=== PATIENT | female | born 1960 | race Caucasian/White ===

== ENCOUNTER 2024-05-21 06:20 | Inpatient (IN) | payer OTHER ==
[~2024-05-21] VITALS: Ht 170.2 cm; Wt 54.5 kg
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
--- NOTE | 2024-05-21 06:50 | ECG ---
[facility] Test Date: 2024-05-21 Test Time: 06:26:41 Pat Name: ARMINDA SANDHU Department: ED Room: Gender: F Soot Blower: WINNIE : 1960 Requested By: ARI WEBSTER Order Number: [id number] Reading MD: Measurements Intervals [place] Rate: 77 P: 81 MD: 147 QRS: 83 QRSD: 89 T: 54 QT: 411 QTc: 466 Interpretive Statements Sinus rhythm Please click the below link to view image of tracing.
[2024-05-21 07:06] LABS: Basophils # (auto) 0 10 ^3/uL (0-0.2); Basophils % (auto) 0.5 % (0.0-2.0); Eosinophils # (auto) 0.1 10 ^3/uL (0-0.8); Eosinophils % (auto) 1.5 % (0.0-7.0); Hematocrit 42.7 % (36.0-46.0); Hemoglobin 14.2 g/dL (12.2-16.2); Lymphocytes # (auto) 1.5 10 ^3/uL (0.4-5.4); Lymphocytes % (auto) 28.9 % (10.0-50.0); Mean Corpuscular Hemoglobin 32.6 pg (28.0-32.0); Mean Corpuscular Hgb Conc. 33.3 g/dL (32.0-36.0); Monocytes # (auto) 0.4 10 ^3/uL (0-1.3); Monocytes % (auto) 8.4 % (0.0-12.0); Neutrophils # (auto) 3.1 10 ^3/uL (1.6-8.6); Neutrophils % (auto) 60.7 % (37.0-80.0); Nucleated Red Blood Cells % 0.1 %; Platelet Count (auto) 274 10^3/uL (140-450); Red Blood Cells 4.36 10^6/uL (4.0-5.20); Red Cell Distribution Width 13.1 % (11.8-14.3); White Blood Cell 5.1 10^3/uL (4.4-10.8)
[2024-05-21 07:21] LABS: Chloride 107 mmol/L (98-107); Potassium 4.2 mmol/L (3.5-5.1); Sodium 138 mmol/L (136-145)
[2024-05-21 07:22] LABS: Anion Gap 4 (5-15); Calcium 9.7 mg/dL (8.7-10.4); Carbon Dioxide 27 mmol/L (20-31)
[2024-05-21 07:27] LABS: BUN/Creatinine Ratio 13.8 (10.0-20.0); Blood Urea Nitrogen 8 mg/dL (9-23); Glucose 117 mg/dL (74-106)
[2024-05-21 08:00] VITALS: PULSE 95; RESP 20; O2SAT 95
[2024-05-21 08:04] LABS: Urine Bacteria None Seen /hpf (None Seen)
[2024-05-21 08:08] LABS: Urine Blood Negative /uL (Negative); Urine Clarity Clear (Clear); Urine Color Light-Yellow (Yellow); Urine Mucus FEW (None Seen); Urine Protein, UAD Negative (Negative); Urine Specific Gravity 1.017 (1.001-1.035); Urine Urobilinogen Normal (Negative); Urine WBC 3 /hpf (0 - 5)
--- NOTE | 2024-05-21 08:17 | DVH ---
EXAM: CT HEAD WITHOUT CONTRAST HISTORY: tia COMPARISON: None TECHNIQUE: [Technique] Axial images of the head were obtained and reformatted in coronal and sagittal planes. All CT scans at this medical facility are performed using dose modulation techniques as appropriate t o a performed exam including the following: Automated exposure control was utilized; adjustment of th e MA and/or KV according to patient size; and use of iterative reconstruction technique. FINDINGS: [Findings] There is no evidence of acute intracranial hemorrhage, mass, mass effect midline shift. There is no h ydrocephalus or extra-axial fluid collection. Clarke-white matter differentiation is maintained.. There is mild mucosal thickening in the right maxillary and ethmoid sinuses. The mastoid air cells a re clear. The calvarium is intact. IMPRESSION: 1. No acute intracranial process. HS:Y
[2024-05-21] MEDS ORDERED: SODIUM CHLORIDE 0.9% 1,000 ML IV SCH (10:00)
[2024-05-21] MEDS ORDERED: ONDANSETRON HCL 4 MG/2 ML VIAL IV PRN (10:00)
[2024-05-21] MEDS ORDERED: ACETAMINOPHEN 325 MG TAB PO PRN (10:00)
[2024-05-21] MEDS ORDERED: LORazepam 0.5 MG TAB PO PRN (10:00)
[2024-05-21] MEDS ORDERED: DEXTROSE (50%) 50ML SYRG IV PRN (10:00)
[2024-05-21] MEDS ORDERED: MAALOX PLUS or MAALOX 30 ML PO PRN (10:00)
[2024-05-21] MEDS ORDERED: DOCUSATE SOD 100 MG CAP PO PRN (10:00)
--- NOTE | 2024-05-21 11:14 | DVHHP2 ---
History of Present Illness Reason for Visit: General Weakness History of Present Illness 63 yo female with weakness numbness and tingling in the extremities with fear of initial stroke brought in to the ed by her son states she was also have alot of urinary frequency and has been feeling extremely dry patient for admission and continued evaluation and management based on ed recommendations Cardiovascular: HTN Renal/: UTI Review of Systems Constitutional: Yes: Weakness; No: Fever, Chills, Sweats, Malaise, Other Eyes: No: Pain, Vision change, Conjunctivae inflammation, Eyelid inflammation, Other, Redness ENT: No: Ear pain, Ear discharge, Nose pain, Nose discharge, Nose congestion, Mouth pain, Mouth swelling, Throat pain, Throat swelling, Other Respiratory: Dry; No: Cough, Shortness of breath, SOB with excertion, Wheezing, Hemoptysis, Pleuritic Pain, Sputum, Wheezing, Other Cardiovascular: No: Chest Pain, Palpitations, Orthopnea, Paroxysmal Noc. Dyspnea, Edema, Lt Headedness, Other Gastrointestinal: No: Nausea, Vomiting, Abdominal Pain, Diarrhea, Constipation, Melena, Hematochezia, Other Genitourinary: No Dysuria; Frequency; No Incontinence, No Hematuria, No Retention, No Other Musculoskeletal: No: other, neck pain, shoulder pain, arm pain, back pain, hand pain, leg pain, foot pain Skin: No: Rash, Lesions, Jaundice, Bruising, Other Neurological: Weakness, Numbness; No: Incoordination, Change in speech, Confusion, Seizures, Other Allergies: Coded Allergies: Codeine (Verified Allergy, Unknown, 05/21/24) Meperidine (Verified Allergy, Unknown, 05/21/24) Medications Current Medications Medications Dose Ordered Sig/Yaakov Route Start Time Stop Time Status Last Admin Dose Admin Diagnostic Test (Pha) 1 strip ACHS 05/21/24 11:30 UNV Insulin Human Regular ACHS SC 05/21/24 11:30 UNV Dextrose 50 ml UD PRN IV 05/21/24 10:00 UNV Sodium Chloride 1,000 ml @ 60 mls/hr [id number] IV 05/21/24 10:00 UNV Lorazepam 0.5 mg Q6HP PRN PO 05/21/24 10:00 UNV Al Hydrox/Mg Hydrox/Simethicone 30 ml Q6HP PRN PO 05/21/24 10:00 UNV Docusate Sodium 100 mg BIDPRN PRN PO 05/21/24 10:00 UNV Acetaminophen 650 mg Q6HP PRN PO 05/21/24 10:00 UNV Ondansetron HCl 4 mg Q4HP PRN IV 05/21/24 10:00 UNV Exam Vital Signs Vital Signs Date Time Temp Pulse Resp B/P (MAP) Pulse Ox O2 Delivery O2 Flow Rate FiO2 05/21/24 10:33 98.2 67 11 107/40 (62) 95 98.2 05/21/24 07:55 Room Air General Appearance: Alert, Oriented X3 HEENT: Atraumatic, PERRLA Respiratory: Clear to auscultation, Normal air movement Cardiovascular: Regular rate, Normal S1, Normal S2 Abdominal: Normal bowel sounds, Soft Extremities: No clubbing, No cyanosis Skin: No rashes, No breakdown Neuro: Normal gait, Normal speech Psych/Mental Status: Mood NL Labs/Xrays Labs Test 05/21/24 07:54 05/21/24 06:47 Range/Units Urine Color Light-yellow Yellow Urine Clarity Clear Clear Urine pH 6.0 5.0-9.0 Urine Specific [place] 1.017 1.001-1.035 Urine Protein Negative Negative Urine Ketones Trace Negative Urine Blood Negative Negative /uL Urine Nitrite Negative Negative Urine Bilirubin Negative Negative Urine Urobilinogen Normal Negative mg/dL Urine Leukocyte Esterase 2+ Negative /uL Urine RBC 2 0 - 4 /hpf Urine WBC 3 0 - 5 /hpf Urine Squamous Epithelial Cells Few <5 /hpf Urine Bacteria None seen None Seen /hpf Urine Mucus Few None Seen Urine Glucose Normal Normal mg/dL White Blood Count 5.1 4.4-10.8 10^3/uL Red Blood Count 4.36 4.0-5.20 10^6/uL Hemoglobin 14.2 12.2-16.2 g/dL Hematocrit 42.7 36.0-46.0 % Mean Corpuscular Volume 98.0 80.0-100.0 fL Mean Corpuscular Hemoglobin 32.6 H 28.0-32.0 pg Mean Corpuscular Hemoglobin Concent 33.3 32.0-36.0 g/dL Red Cell Distribution Width 13.1 11.8-14.3 % Platelet Count 274 140-450 10^3/uL Mean Platelet Volume 7.7 6.9-10.8 fL Neutrophils (%) (Auto) 60.7 37.0-80.0 % Lymphocytes (%) (Auto) 28.9 10.0-50.0 % Monocytes (%) (Auto) 8.4 0.0-12.0 % Eosinophils (%) (Auto) 1.5 0.0-7.0 % Basophils (%) (Auto) 0.5 0.0-2.0 % Neutrophils # (Auto) 3.1 1.6-8.6 10 ^3/uL Lymphocytes # (Auto) 1.5 0.4-5.4 10 ^3/uL Monocytes # (Auto) 0.4 0-1.3 10 ^3/uL Eosinophils # (Auto) 0.1 0-0.8 10 ^3/uL Basophils # (Auto) 0 0-0.2 10 ^3/uL Nucleated Red Blood Cells 0.1 % Sodium Level 138 136-145 mmol/L Potassium Level 4.2 3.5-5.1 mmol/L Chloride Level 107 98-107 mmol/L Carbon Dioxide Level 27 20-31 mmol/L Anion Gap 4 L 5-15 Blood Urea Nitrogen 8 L 9-23 mg/dL Creatinine 0.58 0.550-1.02 mg/dL Glomerular Filtration Rate Calc 100 >90 mL/min BUN/Creatinine Ratio 13.8 10.0-20.0 Serum Glucose 117 H 74-106 mg/dL Calcium Level 9.7 8.7-10.4 mg/dL Assessment/Plan Assessment/Plan Admit to Med/Surge General Weakness Rule out TIA CT head negative electroyltes imbalnce noted IV hydration UTI Positive leukocytes Positive Bacteria Positive for frequency and stated confusion IV hydration IV abx Plan discussed with: Patient, Son My Orders Orders - ZAKIA NUNEZ MD Procedure Category Date Status Time Ceftriaxone 1gm/50ml PHA 05/21/24 Logged D5w (Rocephin) 10:00 Glucose Blood PHA 05/21/24 Logged (Accu-Chek Comfort 11:30 Insulin R (Human) PHA 05/21/24 Logged (Insulin R) 11:30 Dextrose 50% Syringe PHA 05/21/24 Logged 10:00 Admit ADMIT 05/21/24 Transmitted 09:59 Code Status CODE 05/21/24 Transmitted 09:59 Vital Signs [facility] 05/21/24 In Process 09:59 Review Orders With [facility] 05/21/24 In Process Adm. 09:59 Regular Diet DIET 05/21/24 Transmitted Lunch Sodium Chloride 0.9% PHA 05/21/24 Logged 10:00 Lorazepam Tablet PHA 05/21/24 Logged (Ativan Tablet) 10:00 Alum & Mag PHA 05/21/24 Logged Hydrox-Simethicone 10:00 Docusate Sodium PHA 05/21/24 Logged Capsule (Colace 10:00 Acetaminophen Tablet PHA 05/21/24 Logged (Tylenol Tablet) 10:00 Notify Of Changes [facility] 05/21/24 In Process From Base 09:59 Advance Directive [facility] 05/21/24 In Process 09:59 Basic Metabolic Panel LAB 05/22/24 Verified 04:00 Complete Blood Count LAB 05/22/24 Verified 04:00 Patient Condition ORDERS 05/21/24 Transmitted 09:59 Allergies [facility] 05/21/24 In Process 09:59 Ondansetron Hcl [facility] 05/21/24 Logged (Zofran) 10:00 Stat Ekg For Chest [facility] 05/21/24 In Process Pain 09:59 Notify Of Changes [facility] 05/21/24 In Process From Base 09:59 Stenocaptioner For [facility] 05/21/24 In Process 24 Hours 09:59 Emergency Dysrhythmia [facility] 05/21/24 In Process Protocol 09:59 Rhythm Strips Once [facility] 05/21/24 In Process Every Shift 09:59 Oxygen By Nasal RT 05/21/24 Transmitted Cannula 09:59 Sodium Chloride 0.9% [facility] 05/21/24 Verified 11:00 Problem List: (1) UTI (urinary tract infection) (2) TIA (transient ischemic attack) Date of Service: May 21, 2024 Billing Provider: ZAKIA NUNEZ MD Common Visit Codes: [id number] INP/OBS CARE (HIGH) ZAKIA NUNEZ MD May 21, 2024 11:14
[2024-05-21] MEDS: InsuLIN REG 1unit/0.01ml Soln (100units/ml) SC SCH (11:30)
[2024-05-21] MEDS: ACCU-CHEK COMFORT CURVE STRIP VI SCH (11:56)
[2024-05-21 12:05] VITALS: BP 129/65; PULSE 70; RESP 18; TEMP 97.7; O2SAT 99
[2024-05-21] MEDS: cefTRIAXone 1GM/50ML D5W 50 ML IV ONE (13:04)
[2024-05-21] MEDS: SODIUM CHLORIDE 0.9% 1,000 ML IV SCH (13:05)
[2024-05-21 14:57] VITALS: PULSE 60; RESP 18; O2SAT 96
[2024-05-21 17:38] VITALS: BP 128/65; PULSE 70; RESP 16; TEMP 97.7; O2SAT 98
[2024-05-21 19:30] VITALS: RESP 16; O2SAT 95
[2024-05-22] VITALS (7 sets, daily range): BP systolic 124–141; BP diastolic 65–77; PULSE 74–85; RESP 16–18; TEMP 97.7–98.4; O2SAT 95–98
[2024-05-22 07:28] LABS: Anion Gap 7 (5-15); Carbon Dioxide 26 mmol/L (20-31); Chloride 108 mmol/L (98-107); Potassium 4.5 mmol/L (3.5-5.1); Sodium 141 mmol/L (136-145)
[2024-05-22 07:29] LABS: Calcium 9.6 mg/dL (8.7-10.4)
[2024-05-22 07:34] LABS: BUN/Creatinine Ratio 12.7 (10.0-20.0); Blood Urea Nitrogen 7 mg/dL (9-23); Glucose 116 mg/dL (74-106)
[2024-05-22 07:42] LABS: Basophils # (auto) 0 10 ^3/uL (0-0.2); Basophils % (auto) 0.6 % (0.0-2.0); Eosinophils # (auto) 0.2 10 ^3/uL (0-0.8); Eosinophils % (auto) 3.1 % (0.0-7.0); Hematocrit 40.6 % (36.0-46.0); Hemoglobin 13.4 g/dL (12.2-16.2); Lymphocytes # (auto) 1.7 10 ^3/uL (0.4-5.4); Lymphocytes % (auto) 32.2 % (10.0-50.0); Mean Corpuscular Hemoglobin 32.6 pg (28.0-32.0); Mean Corpuscular Hgb Conc. 33.1 g/dL (32.0-36.0); Mean Corpuscular Volume 98.6 fL (80.0-100.0); Monocytes # (auto) 0.5 10 ^3/uL (0-1.3); Monocytes % (auto) 8.8 % (0.0-12.0); Neutrophils % (auto) 55.3 % (37.0-80.0); Platelet Count (auto) 263 10^3/uL (140-450); Red Blood Cells 4.12 10^6/uL (4.0-5.20); Red Cell Distribution Width 13.1 % (11.8-14.3); White Blood Cell 5.4 10^3/uL (4.4-10.8)
--- NOTE | 2024-05-22 16:09 | DVHPN2 ---
Reviewed: Care Plan, H&P, Labs, Medications, Previous Orders, Radiology Changes from previous H/P or p: No Changes General: Per HPI Eyes: No Pain, No Vision change, No Conjunctivae inflammation, No Eyelid inflammation, No Other, No Redness ENT: No Ear pain, No Ear discharge, No Nose pain, No Nose discharge, No Nose congestion, No Mouth pain, No Mouth swelling, No Throat pain, No Throat swelling, No Other Cardiovascular: No Chest Pain, No Palpitations, No Orthopnea, No Paroxysmal Noc. Dyspnea, No Edema, No Lt Headedness, No Other Respiratory: No Cough; Dry; No Shortness of breath, No SOB with excertion, No Wheezing, No Hemoptysis, No Pleuritic Pain, No Sputum, No Other Gastrointestinal: No Nausea, No Vomiting, No Abdominal Pain, No Diarrhea, No Constipation, No Melena, No Hematochezia, No Other Genitourinary: No Dysuria; Frequency; No Incontinence, No Hematuria, No Retention, No Other Musculoskeletal: No other, No neck pain, No shoulder pain, No arm pain, No back pain, No hand pain, No leg pain, No foot pain Skin: No Rash, No Lesions, No Jaundice, No Bruising, No Other Objective Vitals Vital Signs Date Time Temp Pulse Resp B/P (MAP) Pulse Ox O2 Delivery O2 Flow Rate FiO2 05/22/24 14:35 Room Air* 0 21 05/22/24 12:00 97.7 80 16 137/69 (91) 97 97.7 Intake/Output Intake and Output 05/22/24 07:00 Intake Total 2150 ml Balance 2150 ml Intake Oral 750 ml IV Total 1400 ml # Voids 4 General Appearance: Alert, Oriented X3 Lungs: Clear to auscultation Cardiovascular: Regular rate, Normal S1 Abdomen: Normal bowel sounds, Soft Medications Current Medications Medications Dose Ordered Sig/Yaakov Route Start Time Stop Time Status Last Admin Dose Admin Diagnostic Test (Pha) 1 strip ACHS 05/21/24 11:30 05/22/24 05:14 1 STRIP Insulin Human Regular ACHS SC 05/21/24 11:30 Dextrose 50 ml UD PRN IV 05/21/24 10:00 Lorazepam 0.5 mg Q6HP PRN PO 05/21/24 10:00 Al Hydrox/Mg Hydrox/Simethicone 30 ml Q6HP PRN PO 05/21/24 10:00 Docusate Sodium 100 mg BIDPRN PRN PO 05/21/24 10:00 Acetaminophen 650 mg Q6HP PRN PO 05/21/24 10:00 Ondansetron HCl 4 mg Q4HP PRN IV 05/21/24 10:00 Sodium Chloride 1,000 ml @ 200 mls/hr Q5H IV 05/21/24 11:00 05/22/24 02:12 200 MLS/HR Laboratory Results Laboratory Tests 05/22/24 06:08 Chemistry Test 05/22/24 06:08 Calcium Level 9.6 mg/dL (8.7-10.4) Urinalysis Test 05/21/24 07:54 Urine Color Light-yellow (Yellow) Urine Clarity Clear (Clear) Urine pH 6.0 (5.0-9.0) Urine Specific [place] 1.017 (1.001-1.035) Urine Protein Negative (Negative) Urine Ketones Trace (Negative) Urine Blood Negative /uL (Negative) Urine Nitrite Negative (Negative) Urine Bilirubin Negative (Negative) Urine Urobilinogen Normal mg/dL (Negative) Urine Leukocyte Esterase 2+ /uL (Negative) Urine RBC 2 /hpf (0 - 4) Urine WBC 3 /hpf (0 - 5) Urine Squamous Epithelial Cells Few /hpf (<5) Urine Bacteria None seen /hpf (None Seen) Urine Mucus Few (None Seen) Urine Glucose Normal mg/dL (Normal) Labs and/or images reviewed: Labs reviewed by me, Image(s) reviewed by me Assessment/Plan Assessment/Plan General Weakness Rule out TIA UTI CT reviewed consult to neurology Plan discussed with: Patient Date of Service: May 22, 2024 Billing Provider: DALTON TAVAREZ DO Common Visit Codes: [id number] INP/OBS CARE(HIGH) DALTON TAVAREZ DO May 22, 2024 16:09
[2024-05-22] MEDS: cefTRIAXone 1GM/50ML D5W 50 ML IV SCH (16:48)
[2024-05-23 05:00] VITALS: BP 131/76; PULSE 73; RESP 17; TEMP 97.8; O2SAT 95
[2024-05-23 08:00] VITALS: PULSE 85; RESP 18; O2SAT 96
[2024-05-23 09:00] VITALS: BP 140/64; PULSE 88; RESP 19; TEMP 99; O2SAT 95
--- NOTE | 2024-05-23 12:23 | BSKYNEURO ---
[place] Neuro Note # Demographics Consult Type: General Neurology Patient Location: Inpatient First Name: Supriya Last Name: Delio Date of : 1960 Age: 63 Gender: Female Facility: [facility] Time of Initial Page (): 05/23/2024, 10:57 Time of Return Call (): 05/23/2024, 10:57 # HPI Chief Complaint: - weakness (generalized) History: 63F presents with complaint of generalized weakness, impaired memory, AMS. Also with difficulty urinating. Afebrile with normal WBC count. Normal electrolytes. # Exam Time of Exam (): 05/23/2024, 12:17 Vitals: vital signs reviewed Mental Status: - awake - alert and oriented x 3 - follows commands Language: - normal speech Cranial Nerves: - normal Motor: - normal strength Sensory: - normal sensation Cerebellar: - normal cerebellar exam # Data Head CT: - no bleed - per radiologist read # Assessment Impression: Likely psychosomatic reaction to stress Normal exam, no significant lab abnormalities Generalized weakness not consistent with a vascular cause/TIA # Plan Other: - If patient has any neurological deterioration please call me back immediately Disposition: discharge # Logistics Attestation of consult completion: The patient is located at: [facility]. Facility staff participated in the visit. I performed this telemedicine visit from my offsite office utilizing interactive 2 way audio and visual telecommunication technology. Consent: Verbal consent was obtained from the patient and/or family for this encounter. Total time spent in telemedicine encounter: I spent 10 minutes reviewing clinical data and/or imaging, obtaining history, examining the patient, communicating with the onsite care team, and in preparation of this report. Electronically signed at 05/23/2024 12:22 () by Josef Vargas MD Yes JOSEF VARGAS MD May 23, 2024 12:23
[2024-05-23 13:00] VITALS: BP 133/67; PULSE 67; RESP 19; TEMP 99; O2SAT 98
--- NOTE | 2024-05-23 14:35 | DVHDS2 ---
Discharge Summary Date of Admission May 21, 2024 at 16:22 Date of Discharge: May 23, 2024 Labs/Diagnostic Data: Laboratory Results Test 05/23/24 11:02 05/22/24 06:08 05/21/24 07:54 POC Glucose 100 mg/dl (70-106) White Blood Count 5.4 10^3/uL (4.4-10.8) Red Blood Count 4.12 10^6/uL (4.0-5.20) Hemoglobin 13.4 g/dL (12.2-16.2) Hematocrit 40.6 % (36.0-46.0) Mean Corpuscular Volume 98.6 fL (80.0-100.0) Mean Corpuscular Hemoglobin 32.6 pg (28.0-32.0) Mean Corpuscular Hemoglobin Concent 33.1 g/dL (32.0-36.0) Red Cell Distribution Width 13.1 % (11.8-14.3) Platelet Count 263 10^3/uL (140-450) Mean Platelet Volume 8.0 fL (6.9-10.8) Neutrophils (%) (Auto) 55.3 % (37.0-80.0) Lymphocytes (%) (Auto) 32.2 % (10.0-50.0) Monocytes (%) (Auto) 8.8 % (0.0-12.0) Eosinophils (%) (Auto) 3.1 % (0.0-7.0) Basophils (%) (Auto) 0.6 % (0.0-2.0) Neutrophils # (Auto) 3.0 10 ^3/uL (1.6-8.6) Lymphocytes # (Auto) 1.7 10 ^3/uL (0.4-5.4) Monocytes # (Auto) 0.5 10 ^3/uL (0-1.3) Eosinophils # (Auto) 0.2 10 ^3/uL (0-0.8) Basophils # (Auto) 0 10 ^3/uL (0-0.2) Nucleated Red Blood Cells 0.0 % Sodium Level 141 mmol/L (136-145) Potassium Level 4.5 mmol/L (3.5-5.1) Chloride Level 108 mmol/L (98-107) Carbon Dioxide Level 26 mmol/L (20-31) Anion Gap 7 (5-15) Blood Urea Nitrogen 7 mg/dL (9-23) Creatinine 0.55 mg/dL (0.550-1.02) Glomerular Filtration Rate Calc 102 mL/min (>90) BUN/Creatinine Ratio 12.7 (10.0-20.0) Serum Glucose 116 mg/dL (74-106) Calcium Level 9.6 mg/dL (8.7-10.4) Urine Color Light-yellow (Yellow) Urine Clarity Clear (Clear) Urine pH 6.0 (5.0-9.0) Urine Specific [place] 1.017 (1.001-1.035) Urine Protein Negative (Negative) Urine Ketones Trace (Negative) Urine Blood Negative /uL (Negative) Urine Nitrite Negative (Negative) Urine Bilirubin Negative (Negative) Urine Urobilinogen Normal mg/dL (Negative) Urine Leukocyte Esterase 2+ /uL (Negative) Urine RBC 2 /hpf (0 - 4) Urine WBC 3 /hpf (0 - 5) Urine Squamous Epithelial Cells Few /hpf (<5) Urine Bacteria None seen /hpf (None Seen) Urine Mucus Few (None Seen) Urine Glucose Normal mg/dL (Normal) Other Laboratory Tests 05/22/24 06:08 Brief Hx & Hospital Course: 63 yo female with weakness numbness and tingling in the extremities with fear of initial stroke brought in to the ed by her son states she was also have alot of urinary frequency and has been feeling extremely dry patient for admission and continued evaluation and management based on ed recommendations General Weakness Rule out TIA UTI pt has significant risk however during the time she was being worked up for CVA, she left AMA neurology was consulted but did not have a chance to see pt Condition at Discharge: Fair Final Diagnosis/Problems List see above Discharge Disposition: Home Discharge Statement: "Patient was advised to return to the ER or call 911 if any headaches, dizziness, shortness of breath, chest pain, abdominal pain, bleeding, fevers, or worsening of medical condition. Patient was counseled about treatment plan, medications, possible side effects, patientverbalized understanding. All questions were answered to the best of my ability. This discharge took greater then 30 minutes in planning, reviewing documentation, counseling the patient, and discussing with other team members." ASSESSMENT ASSESSMENT Assessment Date of Service: May 23, 2024 Billing Provider: DALTON TAVAREZ DO Common Visit Codes: 99745-MLN/OBS DISCH DAY >30min DALTON TAVAREZ DO May 23, 2024 14:35
--- NOTE | 2024-05-23 17:52 | DVHSR ---
APPROVED REPORT EXAM: Two-dimensional and M-mode echocardiogram with Doppler and color Doppler. Blood Pressure: 131/76 mmHg INDICATION TIA RISK FACTORS Height: 67, Weight: 120 DIMENSIONS LVDd4.5 (3.8-5.7cm)LA (2D)3.4 (1.9-4.0cm)Aortic Root3.2 (2.0-3.7cm) LVDs2.8 (2.5-4.0cm)LA (MM) (1.9-4.0cm)Aortic Cusp Exc1.8 (1.5-2.0cm) EF (%) 67.8 (55-70%)Rt. Atrium3.4 (1.9-4.0cm)Asc. Aorta cm IVSd1.0 (0.7-1.1cm)RV (D) (1.8-2.4cm) PWd0.9 (0.7-1.1cm) Mitral Valve MitralMitral Stenosis E/A ratio0.02D MVAcm2 Conclusion lvef 65% by visual estimate natasha l rv function normal atria no severe valve abnormalities noted
== END 2024-05-23 12:45 | disposition left against medical advice (07) | DRG 690 ==
LOC: EDBD 06:20 → ER 06:20 → TELE 09:59 → UNDOADMIN 09:59 → OVERFLOW 16:22 → CENTRAL 05-22 11:30
PROVIDERS: ADMIT Hospitalist; ATTEND Internal Medicine
DX: N30.01 Acute cystitis with hematuria (principal); Z53.29 Procedure and treatment not carried out because of patient's decision for other reasons; Z88.5 Allergy status to narcotic agent
CPT/HCPCS: 36415; 70450; 80048; 81001; 82962; 85025; 93005; 93306; 96365; 99291; G0378